=== PATIENT | male | born 1940 | race Two or more races ===

== ENCOUNTER 2017-01-29 11:51 | Inpatient (IN) | payer MEDICARE, MEDICAID ==
[~2017-01-29] VITALS: Ht 165.1 cm; Wt 77.6 kg
--- NOTE | 2017-01-29 11:55 | NUR ---
Pt from dr green:preop clearance, L knee Sx on sunday. VSS. awaiting md order.
[2017-01-29 12:15] LABS: BASOPHILS # (AUTO) 0.1 /CMM (0.0-0.2); BASOPHILS % (AUTO) 1.2 % (0.0-2.0); EOSINOPHILS # (AUTO) 0.2 /CMM (0.0-0.7); HEMATOCRIT 39 % (39-51); HEMOGLOBIN 12.6 g/dL (13.5-17.5); LYMPHOCYTES # (AUTO) 1.7 /CMM (0.8-4.8); LYMPHOCYTES % (AUTO) 20.8 % (20.0-44.0); MEAN CORPUSCULAR HEMOGLOBIN 31 PG (26.0-33.0); MEAN CORPUSCULAR HGB CONC 33 g/dl (31.0-36.0); MEAN CORPUSCULAR VOLUME 96 fL (80-96); MONOCYTES # (AUTO) 0.6 /CMM (0.1-1.30); MONOCYTES % (AUTO) 7.6 % (2.0-12.0); NEUTROPHILS # (AUTO) 5.6 /CMM (1.8-8.9); NEUTROPHILS % (AUTO) 67.4 % (43.0-81.0); PLATELET COUNT (AUTO) 279 /CMM (150-450); RDW COEFFICIENT OF VARIATION 13.3 (11.5-15.0); RED BLOOD CELL COUNT(AUTO) 4.04 MIL/uL (4.5-6.0); WHITE BLOOD COUNT (AUTO) 8.2 K/uL (4.3-11.0)
[2017-01-29] MEDS ORDERED: IV SET PRIMARY PUMP SET 1 EA INFUS.SET MC ONE (12:20)
[2017-01-29 12:26] LABS: CALCIUM, SERUM 8.9 mg/dL (8.5-10.1); CREATININE 1.3 mg/dL (0.6-1.3); POTASSIUM 4.5 mmol/L (3.5-5.1)
[2017-01-29 12:30] LABS: INR 1.02 (0.87-1.13); PROTHROMBIN TIME 10.6 SECS (9.5-12.7)
[2017-01-29] MEDS ORDERED: VANCOMYCIN 1 GM in IV D5W 250 ML IV ONE (12:30)
[2017-01-29 12:31] LABS: ALBUMIN 3.6 g/dL (3.4-5.0); BILIRUBIN,DIRECT 0.1 mg/dL (0.0-0.2); BILIRUBIN,TOTAL 0.3 mg/dL (0.2-1.0); TOTAL PROTEIN, SERUM 7.6 g/dL (6.4-8.2)
--- NOTE | 2017-01-29 12:40 | NUR ---
BLUNGER LOADER AT BEDSIDE
[2017-01-29] MEDS ORDERED: DIPH1TAB PO (12:49)
[2017-01-29] MEDS ORDERED: LORA10TA68 PO (12:49)
[2017-01-29] MEDS ORDERED: GABA-534 PO (12:49)
[2017-01-29] MEDS ORDERED: INDO50CA PO (12:49)
[2017-01-29] MEDS ORDERED: AMIT25TA52 PO (12:49)
[2017-01-29] MEDS ORDERED: ACET1TAB14 PO (12:49)
[2017-01-29] MEDS ORDERED: NIFE90TA37 PO (12:49)
[2017-01-29] MEDS ORDERED: ALLO300T2 PO (12:49)
[2017-01-29] MEDS ORDERED: ASPI81TA2 PO (12:49)
[2017-01-29] MEDS ORDERED: GLIP5TAB13 PO (12:49)
--- NOTE | 2017-01-29 13:06 | NUR ---
GAVE REPORT TO LEO NELSON MEDSUR 201-1 DR SINGH ADMITTING. DX INFECTION KNEE
[2017-01-29 13:30] VITALS: BP 151/79
[2017-01-29] MEDS ORDERED: MAGNESIUM HYDROXIDE 30 ML UDC PO PRN (13:30)
[2017-01-29] MEDS ORDERED: Z GUARD REMEDY 2 OZ OINT TP PRN (13:30)
[2017-01-29] MEDS ORDERED: HYDROCODONE/APAP 5/325MG 1 EACH TABLET PO PRN (13:30)
[2017-01-29] MEDS ORDERED: ONDANSETRON HCL/PF 4 MG/2 ML VIAL IVP PRN (13:30)
[2017-01-29] MEDS ORDERED: MAG HYDROX/AL HYDROX/SIMETH 30 ML UDC PO PRN (13:30)
[2017-01-29] MEDS ORDERED: ACETAMINOPHEN 325 MG TABLET PO PRN (13:30)
[2017-01-29] MEDS ORDERED: ZOLPIDEM TARTRATE 5 MG TABLET PO PRN (13:30)
--- NOTE | 2017-01-29 13:30 | NUR ---
MS NELSON OPENING RECEIVED PATIENT FROM ER FOR LEFT INFECTED KNEE SCHEDULED FOR SURGERY TOMORROW Sunday. PATIENT DENIES SOB, DIFFICULTY BREATHING OR PAIN AT THIS TIME. VS BEING TAKEN BY IZABELLA NELSON. PATIENT NOTIFIED EXECUTIVE DIRECTOR OF NURSING WILL SEE HIM FOR CLEARANCE OF SURGERY. NO ORDER FOR SURGERY AT THIS TIME SO UNABLE TO GET CONSENT AT THIS TIME. PATIENT WITH FAMILY AT BEDSIDE AND STATES NO NEEDS. CALL LIGHT IN REACH, BED LOWERED AND LOCKED, RAILS UPX3 FOR SAFETY AND WILL ROUND Q2H OR LESS PER NEEDS. VANCO BEING COMPLETED ORDERED. IV INTACT AND PATENT
[2017-01-29] MEDS ORDERED: FEE PK DOSING 1 MIN EA MC ONE (13:57)
[2017-01-29] MEDS ORDERED: DEXTROSE 50%-WATER 50 ML DISP.SYRIN IV PRN (14:00)
--- NOTE | 2017-01-29 14:00 | NUR ---
MS RN NOTES PATIENT DOES NOT WANT ME TO VISUALIZE HIS SACRUM/BACK. EDUCATED TO WHY WE DO AND PATIENT REFUSING.
[2017-01-29] MEDS ORDERED: ASPIRIN 325 MG TABLET PO ONE (14:30)
[2017-01-29 16:00] VITALS: BP 132/78
[2017-01-29] MEDS: BLOOD SUGAR DIAGNOSTIC 1 EACH STRIP VI SCH ×2 (16:59→21:21)
[2017-01-29] MEDS ORDERED: CEFTRIAXONE 1 G VIAL IM SCH (18:00)
--- NOTE | 2017-01-29 18:43 | NUR ---
MS RN CLOSING PATIENT STABLE NO COMPLICATIONS NO CHANGES. PATIENT AWARE NPO STATUS MIDNIGHT AND SIGNED ALL CONSENT FORMS EXCEPT THE BLOOD TRANSFUSION; WOULD LIKE TO SPEAK WITH MD BEFORE SIGNING. PATIENT STATES NO NEEDS AT THIS TIME AND APPEARS STABLE. CALL LIGHT IN REACH, BED LOWERED AND LOCKED, RAILS UPX3 FOR SAFETY AND WILL ENDORSE CARE TO RN FOR SINAN
--- NOTE | 2017-01-29 19:30 | NUR ---
MS RN INITIAL NOTE RECEIVED PT STABLE AND COMFORTABLE, AMIN OF SURGICAL PROCEDURE TOMORROW AM, PT REFUSES TO SIGN BLOOD CONSENT, HE IS REQUESTING TO SPEAK TO SURGEON BEFORE HE SIGNS CONSENT, WILL CONTINUE TO MONITOR CLOSELY.
[2017-01-29 20:10] VITALS: BP 130/70
[2017-01-29] MEDS: *INSULIN REGULAR(HUMULIN R)HUM 100 UNIT/ML VIAL SQ PRN (20:48)
--- NOTE | 2017-01-29 20:49 | NUR ---
PT'S BS IS 131, PT NOT CONSUMING ANY FOOD OR SNACKS AT THIS TIME AND IS SCHEDULE TO BE NPO AFTER MIDNIGHT DUE TO SURGICAL PROCEDURE SCHEDULE FOR 6:30 AM TOMORROW, WILL CONTINUE TO MONITOR CLOSELY.
[2017-01-29] MEDS ORDERED: IV NS 0.9% 250 ML IV ONE (21:19)
[2017-01-29] MEDS ORDERED: SECONDARY IV SET 1 EA INFUS.SET MC ONE (21:20)
[2017-01-29] MEDS: CEFTRIAXONE 1 G in IV D5W 50 ML IV SCH (21:21)
[2017-01-29] MEDS: AMITRIPTYLINE HCL 25 MG TABLET PO SCH (22:00)
--- NOTE | 2017-01-29 22:00 | NUR ---
ELAVIL 25MG DUE AT 2200 NOT GIVEN DUE TO MEDICATION NOT BEING AVAILABLE.
[2017-01-30] VITALS (49 sets, daily range): BP systolic 75–149; BP diastolic 55–102
[2017-01-30] MEDS: VANCOMYCIN 1 GM in IV D5W 250 ML IV SCH ×3 (01:55→23:53)
[2017-01-30] MEDS ORDERED: SECONDARY IV SET 1 EA INFUS.SET MC ONE ×3 (01:56→11:05)
[2017-01-30] MEDS ORDERED: IV NS 0.9% 250 ML IV ONE ×2 (05:39→10:43)
[2017-01-30] MEDS ORDERED: BACITRACIN 50000 UNITS/VIAL ONE (05:50)
[2017-01-30] MEDS ORDERED: KETOROLAC TROMETHAMINE INJ 30 MG/ML VIAL ONE (05:50)
[2017-01-30] MEDS ORDERED: BUPIVACAINE 0.5 % PF 150 MG/30 ML VIAL ONE (05:50)
[2017-01-30] MEDS ORDERED: MIDAZOLAM HCL 2 MG/2ML VIAL ONE (06:22)
[2017-01-30] MEDS ORDERED: ROCURONIUM BROMIDE 50 MG/5 ML ONE (06:22)
[2017-01-30] MEDS ORDERED: FENTANYL PF 100MCG/2ML AMPUL ONE ×3 (06:22→08:04)
--- NOTE | 2017-01-30 06:41 | NUR ---
MS RN CLOSING NOTE PT REMAINED STABLE DURING BATCH PLANT OPERATOR, PICKED UP BY SURGERY AT 0600, ENDORSED TO OR NURSE FOR SINAN
[2017-01-30 06:57] LABS: BASOPHILS % (AUTO) 0.8 % (0.0-2.0); EOSINOPHILS # (AUTO) 0.2 /CMM (0.0-0.7); HEMATOCRIT 38 % (39-51); HEMOGLOBIN 12.5 g/dL (13.5-17.5); LYMPHOCYTES # (AUTO) 1.1 /CMM (0.8-4.8); LYMPHOCYTES % (AUTO) 19.5 % (20.0-44.0); MEAN CORPUSCULAR HEMOGLOBIN 31 PG (26.0-33.0); MEAN CORPUSCULAR HGB CONC 33 g/dl (31.0-36.0); MEAN CORPUSCULAR VOLUME 96 fL (80-96); MONOCYTES # (AUTO) 0.5 /CMM (0.1-1.30); MONOCYTES % (AUTO) 8.8 % (2.0-12.0); NEUTROPHILS # (AUTO) 3.9 /CMM (1.8-8.9); NEUTROPHILS % (AUTO) 67.9 % (43.0-81.0); PLATELET COUNT (AUTO) 249 /CMM (150-450); RED BLOOD CELL COUNT(AUTO) 3.99 MIL/uL (4.5-6.0); WHITE BLOOD COUNT (AUTO) 5.8 K/uL (4.3-11.0)
--- NOTE | 2017-01-30 07:15 | NUR ---
received report from [facility] nurse minept. left for or at 6am this morning.
[2017-01-30 07:22] LABS: ALBUMIN 3.2 g/dL (3.4-5.0); BILIRUBIN,TOTAL 0.3 mg/dL (0.2-1.0); CALCIUM, SERUM 8.6 mg/dL (8.5-10.1); CREATININE 1.2 mg/dL (0.6-1.3); MAGNESIUM 1.6 mg/dL (1.8-2.4); PHOSPHORUS 2.9 mg/dL (2.5-4.9); POTASSIUM 4.5 mmol/L (3.5-5.1); TOTAL PROTEIN, SERUM 7.2 g/dL (6.4-8.2)
[2017-01-30] MEDS ORDERED: PANTOPRAZOLE 40 MG TABLET.DR PO SCH (07:30)
[2017-01-30] MEDS ORDERED: HYDROMORPHONE 1 MG/1 ML DISP.SYRIN ONE ×2 (08:18→09:18)
[2017-01-30] MEDS ORDERED: LABETALOL HCL IV 100MG VIAL ONE (08:34)
[2017-01-30] MEDS ORDERED: FUROSEMIDE 20 MG/2 ML VIAL ONE ×2 (08:50→08:56)
[2017-01-30] MEDS ORDERED: ALBUTEROL FS 2.5 MG/3 ML VIAL.NEB ONE (08:51)
[2017-01-30] MEDS ORDERED: ASPIRIN 81 MG TAB.CHEW PO SCH (09:00)
[2017-01-30] MEDS ORDERED: NIFEdipine XL (30MG) 30 MG TAB PO SCH (09:00)
[2017-01-30] MEDS ORDERED: DIPHENOXYLATE HCL/ATROP SULF 1 UDTAB TABLET PO PRN (09:00)
[2017-01-30 09:19] LABS: ABG BASE EXCESS -7.1 mmol/L; ABG OXYGEN SATURATION 95.9 % (92.0-98.5); ABG PCO2 46.4 mmHg (35.0-45.0); ABG PH 7.253 (7.350-7.450); ABG PO2 106.1 mmHg (75.0-100.0); AaDO2 219.9 mmHg; COHb 0.6 % (0.5-1.5); MetHb 0.3 % (0.0-1.5); SITE, ABG Left Radial; VENT MODE, BG VIA HHN MASK
--- NOTE | 2017-01-30 09:20 | NUR ---
call form rec. rm. pt. to go to icu [phone].
--- NOTE | 2017-01-30 09:20 | NUR ---
PLACED ON BIPAP DUE TO INCREASED WOB. BIPAP SETTINGS BELLOW PER RT DRIVEN PROTOCOL: IPAP 15 EPAP 5 RATE 12 FIO2 35% BREATH SOUNDS DIMINISHED BILATERAL. Addendum: 01/30/17 at 0948 by MARIA HOGAN RT Amended: Links added.
[2017-01-30] MEDS ORDERED: HYDROCODONE/APAP 5/325MG 1 EACH TABLET PO PRN (09:30)
[2017-01-30] MEDS ORDERED: BISACODYL SUPP (10 MG) 10 MG/SUPP.RECT SUPP.RECT RC PRN (09:30)
[2017-01-30] MEDS ORDERED: IV D5/0.45 NACL 1,000 ML IV PRN (09:30)
[2017-01-30] MEDS ORDERED: ZOLPIDEM TARTRATE 5 MG TABLET PO PRN (09:30)
[2017-01-30] MEDS ORDERED: DOCUSATE SODIUM 250 MG CAPSULE PO PRN (09:30)
[2017-01-30] MEDS ORDERED: SENNOSIDES 8.6 MG TABLET PO PRN (09:30)
--- NOTE | 2017-01-30 09:35 | NUR ---
ICU/RN PT TRANSFER FROM OR.POST OP LEFT KNEE ARTHROTOMY WITH PATELLOPLASTY,WITH I AND D OF THE LEFT KNEE.POST SOC ANALYST.HR WETN TO 138-140 BPM.PT C/O OF PAIN AND SOB.CHEST X-RAY DONE,EKG,ABG,TROPONIN LEVEL ORDERED.40 MG OF LASIX GIVEN IN OR.NEW IV INSERTED ON THE RIGHT FA.PT PLACED ON BI-PAP.CHILD DEVELOPMENT CONSULTANT AT BED SIDE.NEW ORDERS RECEIVED.
--- NOTE | 2017-01-30 09:40 | NUR ---
report called to eliz in icu.on pt. additionally belongings sent to icu,including meds.
--- NOTE | 2017-01-30 09:49 | NUR ---
PT PLACED ON NASAL CANNULA @ 4 LPM O2 FLOW. BIPAP ON STD BY MODE @ BEDSIDE. Addendum: 01/30/17 at 0951 by MARIA HOGAN RT Amended: Links added.
--- NOTE | 2017-01-30 10:00 | NUR ---
ICU/RN 40 MG OF LASIX IV IN PACU WAS GIVEN .PT HAS NO URINE OUTPUT.PT REFUSED TO PLACE FOLLY CATHETER. NOTIFIED.
[2017-01-30] MEDS: ALLOPURINOL 100 MG TABLET PO SCH (10:23)
[2017-01-30] MEDS: glipiZIDE 5 MG TABLET PO SCH (10:24)
[2017-01-30] MEDS: LORATADINE 10 MG TABLET PO SCH (10:24)
[2017-01-30] MEDS: GABAPENTIN 300 MG CAPSULE PO SCH (10:24)
[2017-01-30] MEDS: BLOOD SUGAR DIAGNOSTIC 1 EACH STRIP VI SCH ×4 (10:25→21:31)
[2017-01-30] MEDS ORDERED: DILTIAZEM HCL 25 MG IV IV ONE (10:30)
[2017-01-30] MEDS ORDERED: IV SET PRIMARY PUMP SET 1 EA INFUS.SET MC ONE (10:43)
[2017-01-30] MEDS: Magnesium 1GM/D5W 100ML PREMIX 100 ML IV SCH ×4 (10:50→14:09)
--- NOTE | 2017-01-30 11:00 | NUR ---
ICU/RN DUE MEDS ARE GIVEN ORDERED.FAMILY AT BED SIDE.LABS REVIEW.NEW ORDERS RECEIVED.
[2017-01-30] MEDS: DILTIAZEM HCL 30 MG TABLET PO SCH ×2 (11:41→18:09)
[2017-01-30] MEDS: *INSULIN REGULAR(HUMULIN R)HUM 100 UNIT/ML VIAL SQ PRN ×2 (12:22→21:29)
[2017-01-30] MEDS ORDERED: oxyCODONE IR immediate release 5 MG CAPSULE PO PRN (13:30)
[2017-01-30] MEDS ORDERED: diphenhydrAMINE HCL 25 MG CAPSULE PO PRN (13:30)
[2017-01-30] MEDS: HYDROMORPHONE 1 MG/1 ML DISP.SYRIN SQ PRN ×2 (13:51→21:43)
[2017-01-30 14:13] LABS: ABG BASE EXCESS -2.7 mmol/L; ABG OXYGEN SATURATION 94.4 % (92.0-98.5); ABG PH 7.345 (7.350-7.450); ABG PO2 82.5 mmHg (75.0-100.0); AaDO2 59.2 mmHg; COHb 1.3 % (0.5-1.5); O2Hb 93.2 % (94.0-97.0); SITE, ABG Right Radial; VENT MODE, BG N/C
--- NOTE | 2017-01-30 15:00 | NUR ---
ICU/RN PT STILL HAS NO URINE OUTPUT. NOTIFIED.7 HRS POST OP.BLADDER SCANNER DONE 650 ML OF URINE NOTED .F/C INSERTED.BLOODY URINE NOTED.CONTINUE MONITORING.
[2017-01-30] MEDS: DOCUSATE SODIUM 100 MG CAPSULE PO SCH (16:33)
[2017-01-30] MEDS: IPRATROPIUM NEB FS 0.5 MG/2.5 ML AMPUL.NEB NEB SCH ×3 (16:43→23:06)
--- NOTE | 2017-01-30 18:00 | NUR ---
ICU/RN DUE MEDS ARE GIVEN ORDERED. BS-118.PT EATS 100% FROM HIS DINNER TRAY.PM CARE PROVIDED.PT HAS BLOODY DISCHARGE FROM HIS PENIS AND 650 ML BLOODY URINE FROM HIS F/C.LEFT LEG COVERED WITH SURGICAL DRESSING,LEFT FOOT PINK AND COOL.REDNESS ON HILARY AREA AND LOWER BACK NOTED.ON 2L N/S .SAT O2-96%-97%.ST ON MONITOR.103BPM.AFEBRILE.
[2017-01-30] MEDS: ALBUTEROL HALF STRENGTH 1.25 MG/3 ML VIAL.NEB NEB SCH ×2 (19:43→23:06)
[2017-01-30] MEDS: CEFTRIAXONE 1 G in IV D5W 50 ML IV SCH (20:27)
[2017-01-30] MEDS: ASPIRIN 325 MG TABLET PO SCH (20:27)
[2017-01-30] MEDS: AMITRIPTYLINE HCL 25 MG TABLET PO SCH (21:18)
[2017-01-30] MEDS: PANTOPRAZOLE 40 MG TABLET.DR PO SCH (21:18)
[2017-01-30] MEDS: oxyCODONE IR immediate release 5 MG CAPSULE PO PRN (21:20)
[2017-01-31] VITALS (37 sets, daily range): BP systolic 92–169; BP diastolic 44–107
[2017-01-31] MEDS: HYDROMORPHONE 1 MG/1 ML DISP.SYRIN SQ PRN ×4 (00:52→20:58)
[2017-01-31] MEDS: ALBUTEROL HALF STRENGTH 1.25 MG/3 ML VIAL.NEB NEB SCH ×6 (02:51→23:41)
[2017-01-31] MEDS: IPRATROPIUM NEB FS 0.5 MG/2.5 ML AMPUL.NEB NEB SCH ×6 (02:51→23:41)
[2017-01-31 04:42] LABS: BASOPHILS % (AUTO) 0.4 % (0.0-2.0); CALCIUM, SERUM 8.1 mg/dL (8.5-10.1); CREATININE 2.1 mg/dL (0.6-1.3); EOSINOPHILS # (AUTO) 0.1 /CMM (0.0-0.7); EOSINOPHILS % (AUTO) 0.9 % (0.0-6.0); HEMATOCRIT 33 % (39-51); HEMOGLOBIN 10.7 g/dL (13.5-17.5); LYMPHOCYTES # (AUTO) 1.2 /CMM (0.8-4.8); LYMPHOCYTES % (AUTO) 13.4 % (20.0-44.0); MEAN CORPUSCULAR HEMOGLOBIN 32 PG (26.0-33.0); MEAN CORPUSCULAR HGB CONC 33 g/dl (31.0-36.0); MEAN CORPUSCULAR VOLUME 97 fL (80-96); NEUTROPHILS # (AUTO) 6.8 /CMM (1.8-8.9); NEUTROPHILS % (AUTO) 74.3 % (43.0-81.0); PLATELET COUNT (AUTO) 235 /CMM (150-450); POTASSIUM 4.8 mmol/L (3.5-5.1); RDW COEFFICIENT OF VARIATION 14.1 (11.5-15.0); RED BLOOD CELL COUNT(AUTO) 3.39 MIL/uL (4.5-6.0); WHITE BLOOD COUNT (AUTO) 9.1 K/uL (4.3-11.0)
[2017-01-31] MEDS: DILTIAZEM HCL 30 MG TABLET PO SCH ×4 (05:35→17:20)
--- NOTE | 2017-01-31 06:30 | NUR ---
PEANUT CLEANER - REC'D PT. SLEEPING INTERMITTENTLY, EASILY AROUSABLE. PT.IS UTE BUT DOES NOT OWN HEARING AIDS.PT. ALWAYS TALKS LOUDLY. S/P SURGERY OF LLE/LEFT KNEE ARTHROSCOPY/PATELLAPLASTY W/REVISION-I&D. LLE IS WRAPPED IN CARLOS BANDABE & IS CDI. PT'S O2 SATS HAVE BEEN IN THE LOW 90'S ON O2/2L/NC. PT. ADMITS TO SMOKING ONE PACK/QD. PT. IS WHEEZING THRUOUT ALL LOBES. 1899 TROPONIN WAS #0.103. RN FOUND INHALER ON PT. PT. HAS BEEN USING THIS W/O RN KNOWLEDGE. I EXPLAINED TO PT. HE CANNOT USE HIS INHALER BECAUSE HOSPITAL IS GIVING HIM NEBULIZER TXS. PT.HAS ARTIFICIAL URINARY PUMP. CONNIE GREEN DNP PLACED MARTINEZ IN PT. & PT.HAS HAD BLOODY/HEMATURIA DAYSHIFT & NIGHTSHIFT. MARTINEZ ONLY PUT OUT 200CC FOR ME. PEDAL PULSES PALPABLE/STRONG. PT.REFUSED BEDBATH LAST NIGHT. REPORT ENDORSED TO ENEDINA NELSON. CONT. POC
--- NOTE | 2017-01-31 08:00 | NUR ---
ICU/RN INITIAL NOTES, AM RECEIVED REPORT FROM NIGHT NURSE. PT ALERT, AWAKE FOLLOWS COMMANDS. ON NASAL CANULA, NO ACUTE DISTRESS NOTED AT THIS TIME. MAINTAINING 02 SAT BETWEEN 89-95%, MD'S AWARE. PT ON TELE, SINUS, WITH BUNDLE BRANCH. PT IS POST OP LEFT KNEE SURGERY, SURGICAL DRESSING ON, NO S/S OF BLEEDING NOTED. MARTINEZ CATH IN PLACE, MINIMAL URINE OUTPUT NOTED, MD NOTIFIED. AWAITING FOR RENAL CONSULT. RIGHT UPPER ARM PICC LINE IN PLACE. NO S/S OF INFECTION NOTED. ALL NEEDS WILL BE MET, SAFETY MEASURES TAKEN,BED IN LOW POSITION, SIDE RAILS UP, CALL LIGHT WITHIN REACH. WILL CONTINUE TO CARE.
[2017-01-31] MEDS: BLOOD SUGAR DIAGNOSTIC 1 EACH STRIP VI SCH ×4 (08:10→21:23)
[2017-01-31] MEDS: ASPIRIN 325 MG TABLET PO SCH (08:11)
[2017-01-31] MEDS: GABAPENTIN 300 MG CAPSULE PO SCH (08:11)
[2017-01-31] MEDS: NICOTINE PATCH (21MG) 21 MG PATCH.TD24 TD SCH (08:11)
[2017-01-31] MEDS: INSULIN REGULAR, HUMAN 100 UNIT/ML 3 ML VIAL SQ PRN ×2 (08:11→17:23)
[2017-01-31] MEDS: ALLOPURINOL 100 MG TABLET PO SCH (08:11)
[2017-01-31] MEDS: glipiZIDE 5 MG TABLET PO SCH (08:12)
[2017-01-31] MEDS: LORATADINE 10 MG TABLET PO SCH (08:12)
[2017-01-31] MEDS: DOCUSATE SODIUM 100 MG CAPSULE PO SCH ×2 (08:12→17:20)
--- NOTE | 2017-01-31 12:00 | NUR ---
ICU/RN: AT BEDSIDE FOR CONSULT. MD NOTIFIED OF LOW TO NO URINE OUTPUT. URINE DARK RED/BROWN. ORDERS RECEIVED FOR RENAL US AND OTHER LABS. WILL FOLLOW UP AND FOLLOW THROUGH
[2017-01-31] MEDS: oxyCODONE IR immediate release 5 MG CAPSULE PO PRN (12:18)
--- NOTE | 2017-01-31 14:06 | NUR ---
WOUND CARE CONSULT PATIENT SEEN AND SKIN INTEGRITY ASSESSMENT DONE. PATIENT PRESENTS WITH CARLOS WRAP OVER THE FOOT/ANKLE AND THIGH POST OP. WOUND CARE WILL DEFER POST OP SITE TO ORTHO AT THIS TIME. PATIENT IS CURRENTLY INDEPENDENT WITH BED MOBILITY AND ABLE TO MOVE ALL EXTREMITIES. PATIENT STATES HE KNOWS WHEN HE HAS TO GO TO THE BATHROOM. WOUND CARE WILL SEE PRN. CURRENT LOY AT 19.
[2017-01-31] MEDS: VANCOMYCIN 1 GM in IV D5W 250 ML IV SCH (14:17)
[2017-01-31 16:34] LABS: APPEARANCE,URINE TURBID (CLEAR); BILIRUBIN,URINE 1+ (NEGATIVE); BLOOD, URINE 3+ Ery/uL (NEGATIVE); KETONES,URINE TRACE (NEGATIVE); LEUKOCYTE ESTERASE ,URINE 1+ (NEGATIVE); NITRITE, URINE POSITIVE (NEGATIVE); PH,URINE 6.5 (5.0-8.0); PROTEIN,URINE 3+ mg/dl (NEGATIVE); UGLUCOSE TRACE mg/dL (NEGATIVE)
[2017-01-31 16:42] LABS: COLOR,URINE BROWN (YELLOW)
[2017-01-31 17:02] LABS: RBC,URINE TOO NUMEROUS TO COUN /HPF (0-2)
[2017-01-31 17:03] LABS: BACTERIA,URINE Moderate /HPF (None Seen); SQUAMOUS EPITHELIAL CELL,UR Rare /HPF (None Seen)
[2017-01-31 17:10] LABS: EOSINOPHIL,URINE None Seen
[2017-01-31 17:18] LABS: CREATININE, URINE 152.6 MG/DL (30.0-125.0)
--- NOTE | 2017-01-31 18:00 | NUR ---
ICU/RN: REPORT ENDORSED TO GEORGI. PT TRANSFERRED TO ROOM 310-1 VIA BED AND ACLS GUIDELINES. ALL BELONGINGS SENT WITH PT ALONG WITH MEDICATIONS AND CHART. PT ON 2LITERS NASAL CANULA, NO DISTRESS NOTED. PT ON TELE, SINUS WITH BUNDLE BRANCH. PT BATHED, TURNED AND REPOSITIONED. ALL NEEDS MET, SAFETY MEASURES TAKEN, BED IN LOW POSITION, SIDE RAILS UP, CALL LIGHT WITHIN REACH.
--- NOTE | 2017-01-31 18:25 | NUR ---
MS RN RECEIVED ON FROM ICU, PATIENT IS AWAKE,ALERT,ORIENTED X4,NOT IN ANY FORM OF DISTRESS, RESPIRATIONS EVEN AND UNLABORED,NO SOB NOTED, S/P LEFT KNEE SX, W/ CARLOS WRAPPED,NO BLEEDING NOTED, DENIES PAIN, WILL MONITOR PATIENT'S CONDITION.
--- NOTE | 2017-01-31 19:00 | NUR ---
MS RN ON BED, NO DISTRESS NOTED, WILL ENDORSED TO PRINTING PRESS MACHINIST FOR CONTINUITY OF CARE.
[2017-01-31] MEDS: CEFTRIAXONE 1 G in IV D5W 50 ML IV SCH (20:30)
[2017-01-31] MEDS ORDERED: IV NS 0.9% 250 ML IV ONE (20:36)
[2017-01-31] MEDS ORDERED: SECONDARY IV SET 1 EA INFUS.SET MC ONE (20:36)
[2017-01-31] MEDS ORDERED: IV SET PRIMARY PUMP SET 1 EA INFUS.SET MC ONE (20:36)
[2017-01-31] MEDS: AMITRIPTYLINE HCL 25 MG TABLET PO SCH (21:22)
[2017-01-31] MEDS: PANTOPRAZOLE 40 MG TABLET.DR PO SCH (21:22)
[2017-01-31] MEDS: *INSULIN REGULAR(HUMULIN R)HUM 100 UNIT/ML VIAL SQ PRN (22:36)
[2017-02-01] VITALS (7 sets, daily range): BP systolic 126–152; BP diastolic 69–78
[2017-02-01] MEDS: DILTIAZEM HCL 30 MG TABLET PO SCH ×2 (00:53→05:53)
[2017-02-01] MEDS: HYDROMORPHONE 1 MG/1 ML DISP.SYRIN SQ PRN ×2 (03:13→23:04)
[2017-02-01] MEDS: ALBUTEROL HALF STRENGTH 1.25 MG/3 ML VIAL.NEB NEB SCH ×5 (03:36→19:44)
[2017-02-01] MEDS: IPRATROPIUM NEB FS 0.5 MG/2.5 ML AMPUL.NEB NEB SCH ×5 (03:36→19:44)
[2017-02-01] MEDS: BLOOD SUGAR DIAGNOSTIC 1 EACH STRIP VI SCH ×4 (05:53→21:42)
[2017-02-01] MEDS: INSULIN REGULAR, HUMAN 100 UNIT/ML 3 ML VIAL SQ PRN (06:29)
[2017-02-01 06:38] LABS: BASOPHILS % (AUTO) 0.6 % (0.0-2.0); EOSINOPHILS # (AUTO) 0.1 /CMM (0.0-0.7); HEMATOCRIT 31 % (39-51); HEMOGLOBIN 10.2 g/dL (13.5-17.5); LYMPHOCYTES # (AUTO) 1.1 /CMM (0.8-4.8); LYMPHOCYTES % (AUTO) 15.9 % (20.0-44.0); MEAN CORPUSCULAR HEMOGLOBIN 32 PG (26.0-33.0); MEAN CORPUSCULAR HGB CONC 33 g/dl (31.0-36.0); MEAN CORPUSCULAR VOLUME 96 fL (80-96); MONOCYTES # (AUTO) 0.8 /CMM (0.1-1.30); MONOCYTES % (AUTO) 11.3 % (2.0-12.0); NEUTROPHILS # (AUTO) 4.9 /CMM (1.8-8.9); NEUTROPHILS % (AUTO) 70.2 % (43.0-81.0); PLATELET COUNT (AUTO) 191 /CMM (150-450); RDW COEFFICIENT OF VARIATION 13.9 (11.5-15.0); RED BLOOD CELL COUNT(AUTO) 3.21 MIL/uL (4.5-6.0)
--- NOTE | 2017-02-01 06:48 | NUR ---
LIQUEFIED NATURAL GAS PLANT OPERATOR NOTES AWAKE & RESPONSIVE. NOT IN ANY DISTRESS. NO SOB NOTED. DENIES ANY PAIN OR DISCOMFORT AT THIS TIME. ON TELE SR @ 93 WITH BBB WITH PICC LINE PATENT & INTACT. CALL LIGHT WITHIN REACH. BED IN LOWEST POSITION. SR UP X 2 FOR SAFETY. WILL ENDORSE TO NEXT SHIFT.
[2017-02-01 07:10] LABS: CALCIUM, SERUM 8.4 mg/dL (8.5-10.1); CREATININE 1.6 mg/dL (0.6-1.3); MAGNESIUM 2.2 mg/dL (1.8-2.4); PHOSPHORUS 4.3 mg/dL (2.5-4.9); POTASSIUM 4.7 mmol/L (3.5-5.1)
--- NOTE | 2017-02-01 07:30 | NUR ---
BEAUTY SCHOOL INSTRUCTOR AM NOTES PT IN BED, AAO X4, ON 2L O2 NASAL CANULA, NAD, NO SOB, RESPIRATION UNLABORED, TELEMETRY READS SR WITH BBB HR 93, DENIES ANY DISCOMFORT AT THIS TIME. PT IS POST OP LEFT KNEE SURGERY [ARTHROTOMY] BY DR LIU ON 01/30/17, SURGICAL DRESSING ON, NO S/S OF BLEEDING NOTED. MARTINEZ CATH IN PLACE, MINIMAL URINE OUTPUT NOTED, LISA RUBY MD AWARE. RIGHT UPPER ARM PICC LINE IN PLACE. CDI DRESSING. RFA 20 G IV ACCESS IN PLACE, FLUSHES WELL SITE CLEAR. SAFETY MEASURES IN PLACE. BED IN LOW POSITION, SIDE RAILS UP, CALL LIGHT WITHIN REACH. WILL CONTINUE TO MONITOR.
[2017-02-01 08:53] LABS: ABG BASE EXCESS -3.7 mmol/L; ABG OXYGEN SATURATION 88.1 % (92.0-98.5); ABG PCO2 38.2 mmHg (35.0-45.0); ABG PH 7.364 (7.350-7.450); ABG PO2 57.6 mmHg (75.0-100.0); AaDO2 46.4 mmHg; COHb 0.5 % (0.5-1.5); MetHb 0.1 % (0.0-1.5); O2Hb 87.6 % (94.0-97.0); SITE, ABG Left Radial; VENT MODE, BG ROOM AIR
--- NOTE | 2017-02-01 09:00 | NUR ---
DIRECTOR COMMUNITY ORGANIZATION NOTES PER DR. PAULSON TO PUT PT AT 1/2 LITER O2.
--- NOTE | 2017-02-01 09:30 | NUR ---
BREAKFAST MANAGER NOTES ADMINISTERED DUE MEDS.
[2017-02-01] MEDS: glipiZIDE 5 MG TABLET PO SCH (09:47)
[2017-02-01] MEDS: DOCUSATE SODIUM 100 MG CAPSULE PO SCH ×2 (09:47→16:57)
[2017-02-01] MEDS: GABAPENTIN 300 MG CAPSULE PO SCH (09:47)
[2017-02-01] MEDS: ASPIRIN 325 MG TABLET PO SCH (09:47)
[2017-02-01] MEDS: NICOTINE PATCH (21MG) 21 MG PATCH.TD24 TD SCH (09:48)
[2017-02-01] MEDS: LORATADINE 10 MG TABLET PO SCH (09:48)
[2017-02-01] MEDS: ALLOPURINOL 100 MG TABLET PO SCH (09:49)
--- NOTE | 2017-02-01 11:17 | NUR ---
MS RN NOTES MARTINEZ CATHETER IRRIGATED PER MARCO A [employer] SALES CONSULTANT - 300 ML OUTPUT WITH SLIGHT BROWN PRECIPITATE.
--- NOTE | 2017-02-01 12:05 | NUR ---
HARDWARE PRESS OPERATOR NOTES ACCUCHECK DONE. BS 117 MG/DL. NO INSULIN COVERAGE AT THIS TIME.
[2017-02-01] MEDS ORDERED: DILTIAZEM HCL CD 240 MG PO SCH (12:30)
[2017-02-01] MEDS: VANCOMYCIN 1 GM in IV D5W 250 ML IV SCH (12:47)
[2017-02-01] MEDS ORDERED: SECONDARY IV SET 1 EA INFUS.SET MC ONE (12:49)
[2017-02-01] MEDS ORDERED: DILTIAZEM HCL CD 120 MG PO SCH ×2 (12:58→13:00)
--- NOTE | 2017-02-01 12:59 | NUR ---
MANAGER CREDIT NOTES CARDIZEM 120MG NOT GIVEN. ANY HOWARD AWARE. NEEDS 120 MG ONLY, DISPENSED WAS 240MG CAPSULE. STARTED VANCO IV. INFUSING WELL.
--- NOTE | 2017-02-01 17:47 | NUR ---
PROOF TECHNICIAN HELPER NOTES ACCUCHECK DONE. BS 110 MG/DL. NO INSULIN COVERAGE AT THIS TIME.
--- NOTE | 2017-02-01 18:33 | NUR ---
GENERAL CLERK CLOSING NOTES PT RESTING IN BED, AAO X4, ON 1/2L O2 NASAL CANULA, NAD, NO SOB, RESPIRATION UNLABORED, TELEMETRY READS SR WITH BBB HR 90s, DENIES ANY DISCOMFORT AT THIS TIME. PT IS POST OP LEFT KNEE SURGERY [ARTHROTOMY] BY DR LIU ON 01/30/17, SURGICAL DRESSING ON, NO S/S OF BLEEDING NOTED. MARTINEZ CATH IN PLACE, 1500 ML OUTPUT WITH LISA RUBY MD AWARE. RIGHT UPPER ARM PICC LINE IN PLACE. CDI DRESSING. RFA 20 G IV ACCESS IN PLACE, FLUSHES WELL SITE CLEAR. SAFETY MEASURES IN PLACE. BED IN LOW POSITION, SIDE RAILS UP, CALL LIGHT WITHIN REACH. ALL NEEDS MET. WILL ENDORSE TO NEXT SHIFT FOR SINAN.
--- NOTE | 2017-02-01 19:00 | NUR ---
RN NOTE RECEIVED REPORT. PT RESTING IN BED WITH EYES CLOSED, NO S/S OF ANY DISTRESS AT THIS TIME. BREATHING NON-LABORED AND EVEN, ON NC 0.5L. F/C DRAINING YELLOWISH FLUID, BROWN SEDIMENT NOTED IN COLLECTION BAG. IV INTACT AND PATENT, NO FLUIDS. DRESSING I/C/D/ NO BLEEDING NOTED. WILL CONT TO MONIT. CALL LIGHT IN REACH. Addendum: 02/01/17 at 6 by CAMI MILLIGAN RN TELE SHOWS SR WITH 1AVB AND BBB IN 90'S.
[2017-02-01] MEDS: CEFTRIAXONE 1 G in IV D5W 50 ML IV SCH (19:56)
[2017-02-01] MEDS: oxyCODONE IR immediate release 5 MG CAPSULE PO PRN (21:41)
[2017-02-01] MEDS: PANTOPRAZOLE 40 MG TABLET.DR PO SCH (21:42)
[2017-02-01] MEDS: AMITRIPTYLINE HCL 25 MG TABLET PO SCH (21:42)
[2017-02-02] MEDS: IPRATROPIUM NEB FS 0.5 MG/2.5 ML AMPUL.NEB NEB SCH ×7 (00:03→23:31)
[2017-02-02] MEDS: ALBUTEROL HALF STRENGTH 1.25 MG/3 ML VIAL.NEB NEB SCH ×7 (00:04→23:31)
[2017-02-02 00:32] VITALS: BP 169/91
--- NOTE | 2017-02-02 03:00 | NUR ---
RN NOTE PT TELE SHOWS 130 ST, HAS SOB, C/O DIZZINESS. CONFUSED AND AGITATED. MD MADE AWARE, ORDERED STAT ABG, CXR, VENOUS DUPLEX LOWER EXTREMITIES. WILL MONITOR.
[2017-02-02] MEDS ORDERED: ENOXAPARIN SODIUM 80 MG/0.8 ML DISP.SYRIN SQ ONE ×2 (03:43→04:00)
[2017-02-02 04:16] LABS: ABG BASE EXCESS -4.4 mmol/L; ABG OXYGEN SATURATION 91.4 % (92.0-98.5); ABG PCO2 33.6 mmHg (35.0-45.0); ABG PH 7.389 (7.350-7.450); ABG PO2 65.9 mmHg (75.0-100.0); AaDO2 94.1 mmHg; COHb 1.5 % (0.5-1.5); MetHb 0.1 % (0.0-1.5); O2Hb 89.9 % (94.0-97.0); SITE, ABG Left Radial; VENT MODE, BG 2LNC
--- NOTE | 2017-02-02 04:30 | NUR ---
RN NOTE MD MADE AWARE OF ABG AND CXR RESULTS. NC INCREASED TO 4L, SATTING 92%. STILL CONFUSED. PER MD, TRANSFER PT TO [facility] FOR SUSPICION OF P.E.
[2017-02-02 04:33] VITALS: BP_SYST 115; BP_SYST 149; BP_DIAS 63; BP_DIAS 84
--- NOTE | 2017-02-02 05:30 | NUR ---
RN NOTE PT TRANSFERRED TO [facility] ROOM 115 WE ALL BELONGINGS.
--- NOTE | 2017-02-02 05:35 | NUR ---
nancy rn notes received pts from rn tabitha pts transfer to nancy STATUS d/t suspicion of PE, PTS ON VIA NC , AWAKE WITH CONFUSION , BLE US DOPPLER DONE , NO DVT NOTED . PT S/P L KNEE ARTHROTOMY WITH PATELOPLASTY ON 01/30 17 , DRESSING INTACT AND DRY , V/S STABLE AFEBRILE .NO SOB NO DISTRESS NOTED . WITH F/C INTACT AND PATENT DRAINING WITH YELLOWISH URINE OUTPUT , WILL ENDORSE TO RN DAY SHIFT FOR CONTINUITY OF CARE.
[2017-02-02 07:48] LABS: BASOPHILS % (AUTO) 0.3 % (0.0-2.0); EOSINOPHILS # (AUTO) 0.1 /CMM (0.0-0.7); EOSINOPHILS % (AUTO) 0.9 % (0.0-6.0); HEMATOCRIT 30 % (39-51); HEMOGLOBIN 9.8 g/dL (13.5-17.5); LYMPHOCYTES # (AUTO) 0.8 /CMM (0.8-4.8); LYMPHOCYTES % (AUTO) 8.5 % (20.0-44.0); MEAN CORPUSCULAR HEMOGLOBIN 32 PG (26.0-33.0); MEAN CORPUSCULAR HGB CONC 33 g/dl (31.0-36.0); MEAN CORPUSCULAR VOLUME 96 fL (80-96); MONOCYTES # (AUTO) 0.9 /CMM (0.1-1.30); MONOCYTES % (AUTO) 9.9 % (2.0-12.0); NEUTROPHILS # (AUTO) 7.1 /CMM (1.8-8.9); NEUTROPHILS % (AUTO) 80.4 % (43.0-81.0); PLATELET COUNT (AUTO) 192 /CMM (150-450); RDW COEFFICIENT OF VARIATION 14.1 (11.5-15.0); RED BLOOD CELL COUNT(AUTO) 3.12 MIL/uL (4.5-6.0); WHITE BLOOD COUNT (AUTO) 8.9 K/uL (4.3-11.0)
[2017-02-02 08:00] VITALS: BP 157/80
--- NOTE | 2017-02-02 08:00 | NUR ---
RN NOTES RECEIVED PT RESTING IN BED, AAO X3, CURRENTLY RECEIVING BREATHING TX. TELEMETRY READS SR WITH BBB, DENIES ANY DISCOMFORT AT THIS TIME. PT IS POST OP LEFT KNEE SURGERY [ARTHROTOMY] BY DR LIU ON 01/30/17, SURGICAL DRESSING ON. MARTINEZ CATH IN PLACE, MINIMAL URINE OUTPUT NOTED, RIGHT UPPER ARM PICC LINE IN PLACE. CDI DRESSING. SAFETY MEASURES IN PLACE. BED IN LOW POSITION, SIDE RAILS UP, CALL LIGHT WITHIN REACH. WILL CONTINUE TO MONITOR.
[2017-02-02] MEDS: DOCUSATE SODIUM 100 MG CAPSULE PO SCH ×2 (08:06→17:15)
[2017-02-02] MEDS: GABAPENTIN 300 MG CAPSULE PO SCH (08:06)
[2017-02-02] MEDS: BLOOD SUGAR DIAGNOSTIC 1 EACH STRIP VI SCH ×4 (08:06→21:27)
[2017-02-02] MEDS: NICOTINE PATCH (21MG) 21 MG PATCH.TD24 TD SCH (08:06)
[2017-02-02] MEDS: glipiZIDE 5 MG TABLET PO SCH (08:06)
[2017-02-02] MEDS: ASPIRIN 325 MG TABLET PO SCH (08:06)
[2017-02-02] MEDS: ALLOPURINOL 100 MG TABLET PO SCH (08:06)
[2017-02-02] MEDS: LORATADINE 10 MG TABLET PO SCH (08:07)
[2017-02-02] MEDS: DILTIAZEM HCL CD 120 MG PO SCH (08:07)
[2017-02-02 08:08] LABS: CALCIUM, SERUM 8.6 mg/dL (8.5-10.1); CREATININE 1.2 mg/dL (0.6-1.3); POTASSIUM 4.7 mmol/L (3.5-5.1)
[2017-02-02] MEDS: *INSULIN REGULAR(HUMULIN R)HUM 100 UNIT/ML VIAL SQ PRN ×2 (08:11→21:28)
[2017-02-02 12:00] VITALS: BP 149/77
[2017-02-02] MEDS: VANCOMYCIN 1 GM in IV D5W 250 ML IV SCH (12:24)
[2017-02-02] MEDS ORDERED: SECONDARY IV SET 1 EA INFUS.SET MC ONE ×2 (12:24→19:57)
[2017-02-02] MEDS ORDERED: IV SET PRIMARY PUMP SET 1 EA INFUS.SET MC ONE (12:24)
[2017-02-02] MEDS ORDERED: IV NS 0.9% 250 ML IV ONE (12:24)
[2017-02-02 16:00] VITALS: BP 154/72
[2017-02-02] MEDS: CEFTRIAXONE 1 G in IV D5W 50 ML IV SCH (19:54)
[2017-02-02 20:00] VITALS: BP 165/78
[2017-02-02] MEDS: PANTOPRAZOLE 40 MG TABLET.DR PO SCH (21:21)
[2017-02-02] MEDS: AMITRIPTYLINE HCL 25 MG TABLET PO SCH (21:21)
[2017-02-03] VITALS: BP 172/79
[2017-02-03] MEDS: ALBUTEROL HALF STRENGTH 1.25 MG/3 ML VIAL.NEB NEB SCH ×6 (03:26→23:30)
[2017-02-03] MEDS: IPRATROPIUM NEB FS 0.5 MG/2.5 ML AMPUL.NEB NEB SCH ×6 (03:26→23:30)
[2017-02-03 04:00] VITALS: BP 158/78
[2017-02-03] MEDS: INSULIN REGULAR, HUMAN 100 UNIT/ML 3 ML VIAL SQ PRN (06:41)
[2017-02-03] MEDS: BLOOD SUGAR DIAGNOSTIC 1 EACH STRIP VI SCH ×4 (06:42→22:09)
--- NOTE | 2017-02-03 06:51 | NUR ---
RN CLOSING NOTE PT REMAINS IN NO ACUTE DISTRESS IN BED. PT DID NOT HAVE ANY SIGNIFICANT CHANGE IN CONDITION. ALL NEEDS MET ALL ORDERS CARRIED OUT. ALL SAFETY MEASURES ENSURED AND CARRIED OUT. WILL ENDORSE TO AM RN FOR CONTINUITY OF CARE.
[2017-02-03 07:22] LABS: BASOPHILS % (AUTO) 0.5 % (0.0-2.0); EOSINOPHILS # (AUTO) 0.1 /CMM (0.0-0.7); EOSINOPHILS % (AUTO) 2.7 % (0.0-6.0); HEMATOCRIT 33 % (39-51); HEMOGLOBIN 10.9 g/dL (13.5-17.5); LYMPHOCYTES # (AUTO) 0.5 /CMM (0.8-4.8); LYMPHOCYTES % (AUTO) 8.7 % (20.0-44.0); MEAN CORPUSCULAR HEMOGLOBIN 32 PG (26.0-33.0); MEAN CORPUSCULAR HGB CONC 33 g/dl (31.0-36.0); MEAN CORPUSCULAR VOLUME 96 fL (80-96); MONOCYTES # (AUTO) 0.6 /CMM (0.1-1.30); MONOCYTES % (AUTO) 11.5 % (2.0-12.0); NEUTROPHILS # (AUTO) 4.1 /CMM (1.8-8.9); NEUTROPHILS % (AUTO) 76.6 % (43.0-81.0); PLATELET COUNT (AUTO) 226 /CMM (150-450); RDW COEFFICIENT OF VARIATION 13.6 (11.5-15.0); RED BLOOD CELL COUNT(AUTO) 3.42 MIL/uL (4.5-6.0); WHITE BLOOD COUNT (AUTO) 5.3 K/uL (4.3-11.0)
[2017-02-03 07:37] LABS: CALCIUM, SERUM 8.9 mg/dL (8.5-10.1); CREATININE 1.2 mg/dL (0.6-1.3); POTASSIUM 4.4 mmol/L (3.5-5.1)
[2017-02-03 08:00] VITALS: BP 169/80
[2017-02-03] MEDS: glipiZIDE 5 MG TABLET PO SCH (08:43)
[2017-02-03] MEDS: GABAPENTIN 300 MG CAPSULE PO SCH (08:43)
[2017-02-03] MEDS: ALLOPURINOL 100 MG TABLET PO SCH (08:44)
[2017-02-03] MEDS: LORATADINE 10 MG TABLET PO SCH (08:44)
[2017-02-03] MEDS: ASPIRIN 325 MG TABLET PO SCH (08:44)
[2017-02-03] MEDS: DILTIAZEM HCL CD 120 MG PO SCH (08:45)
[2017-02-03] MEDS: DOCUSATE SODIUM 100 MG CAPSULE PO SCH ×2 (08:46→17:31)
[2017-02-03] MEDS: NICOTINE PATCH (21MG) 21 MG PATCH.TD24 TD SCH (08:46)
[2017-02-03] MEDS: HYDROMORPHONE 1 MG/1 ML DISP.SYRIN SQ PRN ×2 (08:49→15:10)
[2017-02-03 12:00] VITALS: BP 163/85
[2017-02-03] MEDS: VANCOMYCIN 1 GM in IV D5W 250 ML IV SCH (12:25)
[2017-02-03] MEDS: oxyCODONE IR immediate release 5 MG CAPSULE PO PRN (12:26)
[2017-02-03 16:00] VITALS: BP 133/80
[2017-02-03 20:00] VITALS: BP 145/92
--- NOTE | 2017-02-03 20:00 | NUR ---
DIGITAL MEDIA REPRESENTATIVE INITIAL NOTE PT RECEIVED SITTING AT SIDE OF BED WITH SITTER AT BEDSIDE. A/O X2 WITH CONFUSION AND RESTLESSNESS AND VERBALIZING HE WANTS TO GO HOME. ON 3L OF O2 AND SATING WELL. IV SITE INTACT AND FLUSHING WELL. SPOKE WITH METAL FABRICATOR HELPER DR. DON REGARDING PT'S RESTLESSNESS AND VERBALIZATION OF WANTING TO GO HOME WITH NEW ORDER FOR ABG. READ BACK FOR CONFIRMATION. WILL CONTINUE TO MONITOR.
--- NOTE | 2017-02-03 20:30 | NUR ---
SKILLS TRAINER NOTE SPOKE WITH TO TALK TO PT AND CONVINCE HIM TO STAY THE NIGHT AND NOT TO REFUSE CARE. PT AGREED. PT UP IN CHAIR WITH SITTER AT BEDSIDE. WILL CONTINUE TO MONITOR
[2017-02-03 20:40] LABS: ABG BASE EXCESS 0.2 mmol/L; ABG OXYGEN SATURATION 92.4 % (92.0-98.5); ABG PO2 68.2 mmHg (75.0-100.0); AaDO2 40.8 mmHg; COHb 0.7 % (0.5-1.5); O2Hb 91.8 % (94.0-97.0); SITE, ABG Right Brachial; VENT MODE, BG RA
[2017-02-03] MEDS: PANTOPRAZOLE 40 MG TABLET.DR PO SCH (22:09)
[2017-02-03] MEDS: AMITRIPTYLINE HCL 25 MG TABLET PO SCH (22:09)
[2017-02-03] MEDS: *INSULIN REGULAR(HUMULIN R)HUM 100 UNIT/ML VIAL SQ PRN (22:15)
[2017-02-04] VITALS: BP 154/80
[2017-02-04] MEDS: ACETAMINOPHEN 325 MG TABLET PO PRN ×2 (01:10→20:28)
[2017-02-04] MEDS: IPRATROPIUM NEB FS 0.5 MG/2.5 ML AMPUL.NEB NEB SCH ×6 (03:28→23:30)
[2017-02-04] MEDS: ALBUTEROL HALF STRENGTH 1.25 MG/3 ML VIAL.NEB NEB SCH ×6 (03:29→23:30)
[2017-02-04 04:00] VITALS: BP 124/80
--- NOTE | 2017-02-04 07:00 | NUR ---
RN INITIAL NOTE RECEIVED PT FROM DAISY NELSON PM NURSE. PT A/O X2 WITH PERIODS OF CONFUSION. PT ON3L NC NO C/O SOB. L KNEE DRESSING INTACT. IV RAE PICC . SITTER @ BEDSIDE. WILL CONTINUE TO MONITOR CLOSELY. ALL SAFETY MEASURES IN PLACE.
--- NOTE | 2017-02-04 07:00 | NUR ---
PASTRYCOOK CLOSING NOTE PT REMAINED STABLE DURING SHIFT WITH PERIODS OF CONFUSION. NO ACUTE DISTRESS NOTED. NO C/O PAIN NOTED. SITTER AT BEDSIDE DURING SHIFT. ALL NEEDS ATTENDED TO PROMPTLY. WILL ENDORSE TO NEXT SHIFT FOR SINAN.
[2017-02-04] MEDS: BLOOD SUGAR DIAGNOSTIC 1 EACH STRIP VI SCH ×4 (07:02→21:58)
[2017-02-04 07:19] LABS: BASOPHILS # (AUTO) 0.1 /CMM (0.0-0.2); BASOPHILS % (AUTO) 1.4 % (0.0-2.0); EOSINOPHILS # (AUTO) 0.2 /CMM (0.0-0.7); EOSINOPHILS % (AUTO) 3.4 % (0.0-6.0); HEMATOCRIT 29 % (39-51); HEMOGLOBIN 9.8 g/dL (13.5-17.5); LYMPHOCYTES # (AUTO) 0.8 /CMM (0.8-4.8); LYMPHOCYTES % (AUTO) 13.4 % (20.0-44.0); MEAN CORPUSCULAR HEMOGLOBIN 32 PG (26.0-33.0); MEAN CORPUSCULAR HGB CONC 34 g/dl (31.0-36.0); MEAN CORPUSCULAR VOLUME 95 fL (80-96); MONOCYTES # (AUTO) 1.5 /CMM (0.1-1.30); MONOCYTES % (AUTO) 23.8 % (2.0-12.0); NEUTROPHILS # (AUTO) 3.6 /CMM (1.8-8.9); PLATELET COUNT (AUTO) 213 /CMM (150-450); RDW COEFFICIENT OF VARIATION 13.6 (11.5-15.0); RED BLOOD CELL COUNT(AUTO) 3.07 MIL/uL (4.5-6.0); WHITE BLOOD COUNT (AUTO) 6.2 K/uL (4.3-11.0)
[2017-02-04 07:29] LABS: CALCIUM, SERUM 9.1 mg/dL (8.5-10.1); CREATININE 1.4 mg/dL (0.6-1.3); MAGNESIUM 1.7 mg/dL (1.8-2.4); POTASSIUM 4.4 mmol/L (3.5-5.1)
[2017-02-04 08:00] VITALS: BP_SYST 122; BP_SYST 156; BP_DIAS 60; BP_DIAS 85
[2017-02-04 08:00] LABS: BASOPHILS % (MANUAL) 1 % (0.0-2.0); EOSINOPHILS % (MANUAL) 4 % (0-4); LYMPHOCYTES % (MANUAL) 13 % (16-48); MONOCYTES % (MANUAL) 21 % (0-11.0); NEUTROPHILS % (MANUAL) 61 (42-76)
--- NOTE | 2017-02-04 08:04 | NUR ---
RN NOTE PT REFUSED TELE MONITOR. TECH (KIN) AWARE.
[2017-02-04] MEDS: glipiZIDE 5 MG TABLET PO SCH (08:09)
[2017-02-04] MEDS: ASPIRIN 325 MG TABLET PO SCH (08:09)
[2017-02-04] MEDS: ALLOPURINOL 100 MG TABLET PO SCH (08:10)
[2017-02-04] MEDS: DILTIAZEM HCL CD 120 MG PO SCH (08:10)
[2017-02-04] MEDS: DOCUSATE SODIUM 100 MG CAPSULE PO SCH ×2 (08:10→16:32)
[2017-02-04] MEDS: GABAPENTIN 300 MG CAPSULE PO SCH (08:10)
[2017-02-04] MEDS: NICOTINE PATCH (21MG) 21 MG PATCH.TD24 TD SCH (08:11)
[2017-02-04] MEDS: LORATADINE 10 MG TABLET PO SCH (08:11)
[2017-02-04] MEDS ORDERED: SECONDARY IV SET 1 EA INFUS.SET MC ONE (10:43)
[2017-02-04] MEDS: Magnesium 1GM/D5W 100ML PREMIX 100 ML IV SCH ×2 (10:50→11:15)
[2017-02-04 12:00] VITALS: BP_SYST 152; BP_SYST 156; BP_DIAS 73
[2017-02-04] MEDS: VANCOMYCIN 1 GM in IV D5W 250 ML IV SCH (12:42)
--- NOTE | 2017-02-04 12:46 | NUR ---
RN NOTE CALLED PHARMACY REGARDING VANCO TROUGH 15 LAST DRAWN 02/01. PEPE STATED OK TO HANG WILL DRAW TOMORROW.
--- NOTE | 2017-02-04 14:56 | NUR ---
RN NOTE PHARMACY CALLED [facility]NABLE TO GIVE BAG #2 OF MAG DUE TO VANCO RUNNING. CALLED PHARMACY TO RE ENTER SECOND DOSE.
[2017-02-04] MEDS ORDERED: Magnesium 1GM/D5W 100ML PREMIX 100 ML IV SCH (15:00)
[2017-02-04 16:00] VITALS: BP_SYST 152; BP_SYST 156; BP_DIAS 79; BP_DIAS 85
[2017-02-04] MEDS: HYDROMORPHONE 1 MG/1 ML DISP.SYRIN SQ PRN (16:33)
[2017-02-04] MEDS: INSULIN REGULAR, HUMAN 100 UNIT/ML 3 ML VIAL SQ PRN (17:36)
--- NOTE | 2017-02-04 20:24 | NUR ---
RUBBER GOODS INSPECTOR TESTER NOTE PT IN BED A/A/O X 2 CONFUSED. NO SOB, NO DISTRESS OR DISCOMFORT NOTED. DENIES PAIN. PT HAS LOW GRADE FEVER 100.7 TYLENOL 650 MG PO GIVEN. ON TELE ARRHYTHMIA WITH PVC HR 98. RAE WITH PICC LINE INTACT AND PATENT. SITTER AT BED SIDE. SIDE RAILS UP X 2 AND CALL LIGHT WITHIN REACH. VSS. CONTINUE TO MONITOR HIM.
[2017-02-04 20:33] VITALS: BP 145/64
[2017-02-04] MEDS: AMITRIPTYLINE HCL 25 MG TABLET PO SCH (21:20)
[2017-02-04] MEDS: PANTOPRAZOLE 40 MG TABLET.DR PO SCH (21:20)
[2017-02-04] MEDS: *INSULIN REGULAR(HUMULIN R)HUM 100 UNIT/ML VIAL SQ PRN (21:59)
[2017-02-05] VITALS: BP 128/72
--- NOTE | 2017-02-05 | NUR ---
MEDICAL INSURANCE CLAIMS SPECIALIST NOTE INCONTINENCE CARE GIVEN. PT IN NO DISTRESS OR DISCOMFORT NOTED. SITTER AT BED SIDE. CONTINUE TO MONITOR HIM.
[2017-02-05] MEDS: IPRATROPIUM NEB FS 0.5 MG/2.5 ML AMPUL.NEB NEB SCH ×4 (03:30→15:36)
[2017-02-05] MEDS: ALBUTEROL HALF STRENGTH 1.25 MG/3 ML VIAL.NEB NEB SCH ×4 (03:30→15:36)
[2017-02-05 04:00] VITALS: BP 103/45
--- NOTE | 2017-02-05 04:56 | NUR ---
PHYSICIAN ASSISTANT PSYCHIATRY NOTE PT IN BED ASLEEP. RESP EVEN AND NON LABORED. ON TELE SR WITH BBB AND OCCASIONAL PVC HR 95. CONTINUE TO MONITOR HIM.
[2017-02-05] MEDS: BLOOD SUGAR DIAGNOSTIC 1 EACH STRIP VI SCH ×2 (05:40→11:43)
[2017-02-05] MEDS: INSULIN REGULAR, HUMAN 100 UNIT/ML 3 ML VIAL SQ PRN (05:42)
--- NOTE | 2017-02-05 06:27 | NUR ---
COLOR MAKER NOTE PT IN BED AWAKE. NO DISTRESS OR DISCOMFORT NOTED. DENIES PAIN. PICC LINE INTACT AND PATENT. SITTER AT BED SIDE. SIDE RAILS UP X 2 AND CALL LIGHT WITHIN REACH. WILL ENDORSE TO DAY SHIFT NURSE FOR CONTINUE TO CARE.
[2017-02-05 08:00] VITALS: BP 124/77
--- NOTE | 2017-02-05 08:00 | NUR ---
TELE1/RN AM SHIFT INITIAL NOTES RECEIVED PT AWAKE SITTING IN BED WITH SITTER AT BEDSIDE. PT A/O X 2 WITH NOTED CONFUSION, DENIES ANY DISCOMFORT, NO ACUTE CHANGE OF CONDITION NOTED. ON 3L O2 VIA N/C SATURATING @ 96%, LUNG SOUNDS DIMINISHED. ON TELE WITH SINUS RHYTHM WITH BBB, HR 98. PICC LINE FLUSHED, 1 PORT OCCLUDED, OTHER PATENT. PT IS COMFORTABLE AT THIS TIME. SCHEDULED AM MEDS TO BE GIVEN. CL WITHIN REACHED AND SAFETY MAINTAINED. ON GOING MONITORING.
[2017-02-05] MEDS: LORATADINE 10 MG TABLET PO SCH (08:56)
[2017-02-05] MEDS: GABAPENTIN 300 MG CAPSULE PO SCH (08:56)
[2017-02-05] MEDS: glipiZIDE 5 MG TABLET PO SCH (08:56)
[2017-02-05] MEDS: DOCUSATE SODIUM 100 MG CAPSULE PO SCH (08:56)
[2017-02-05] MEDS: ALLOPURINOL 100 MG TABLET PO SCH (08:56)
[2017-02-05] MEDS: ASPIRIN 325 MG TABLET PO SCH (08:57)
[2017-02-05] MEDS: NICOTINE PATCH (21MG) 21 MG PATCH.TD24 TD SCH (08:57)
[2017-02-05] MEDS: DILTIAZEM HCL CD 120 MG PO SCH (08:57)
[2017-02-05 09:26] LABS: BASOPHILS % (AUTO) 0.9 % (0.0-2.0); EOSINOPHILS # (AUTO) 0.1 /CMM (0.0-0.7); EOSINOPHILS % (AUTO) 2.5 % (0.0-6.0); HEMATOCRIT 31 % (39-51); HEMOGLOBIN 10.2 g/dL (13.5-17.5); LYMPHOCYTES # (AUTO) 0.4 /CMM (0.8-4.8); LYMPHOCYTES % (AUTO) 9.9 % (20.0-44.0); MEAN CORPUSCULAR HEMOGLOBIN 31 PG (26.0-33.0); MEAN CORPUSCULAR HGB CONC 33 g/dl (31.0-36.0); MEAN CORPUSCULAR VOLUME 95 fL (80-96); MONOCYTES # (AUTO) 0.8 /CMM (0.1-1.30); MONOCYTES % (AUTO) 17.9 % (2.0-12.0); NEUTROPHILS # (AUTO) 3.1 /CMM (1.8-8.9); NEUTROPHILS % (AUTO) 68.8 % (43.0-81.0); PLATELET COUNT (AUTO) 223 /CMM (150-450); RDW COEFFICIENT OF VARIATION 13.8 (11.5-15.0); RED BLOOD CELL COUNT(AUTO) 3.28 MIL/uL (4.5-6.0); WHITE BLOOD COUNT (AUTO) 4.4 K/uL (4.3-11.0)
[2017-02-05 09:33] LABS: CALCIUM, SERUM 8.6 mg/dL (8.5-10.1); CREATININE 1.4 mg/dL (0.6-1.3); POTASSIUM 4.5 mmol/L (3.5-5.1)
--- NOTE | 2017-02-05 10:20 | NUR ---
TELE1/RN PHYSICAL THERAPY PT BEING SEEN BY PHYSICAL THERAPIST. PT ABLE TO WALK FOR SHORT DISTANCE WITH ASSISTANCE.
[2017-02-05 10:39] LABS: BAND % (MANUAL) 3 % (0.0-5.0); EOSINOPHILS % (MANUAL) 1 % (0-4); LYMPHOCYTES % (MANUAL) 21 % (16-48); MONOCYTES % (MANUAL) 18 % (0-11.0); NEUTROPHILS % (MANUAL) 57 (42-76)
--- NOTE | 2017-02-05 10:47 | NUR ---
TELE1/RN NOTIFICATION - [facility] CALLED DR. LIU'S OFFICE AND RELAYED NOTED DRAINAGE ON LEFT KNEE SURGICAL SITE, SAID THAT MS MIGHT WANT TO SEE PT BEFORE POSSIBLE DISCHARGE TODAY.
[2017-02-05] MEDS: VANCOMYCIN 1 GM in IV D5W 250 ML IV SCH (11:35)
[2017-02-05] MEDS: oxyCODONE IR immediate release 5 MG CAPSULE PO PRN (11:41)
[2017-02-05 12:00] VITALS: BP 135/75
[2017-02-05] MEDS ORDERED: NA PHOS,M-B/NA PHOS,DI-BA 1 EA ENEMA RC PRN (14:30)
[2017-02-05] MEDS ORDERED: VANC1PLA9 IV (15:33)
[2017-02-05] MEDS ORDERED: ALBU1.25 NEB (15:33)
[2017-02-05] MEDS ORDERED: NA P133E RC (15:33)
[2017-02-05] MEDS ORDERED: DOCU-25 PO (15:33)
[2017-02-05] MEDS ORDERED: Oxycodone Hcl PO (15:33)
[2017-02-05] MEDS ORDERED: DILT120C87 PO (15:33)
[2017-02-05] MEDS ORDERED: Ipratropium Bromide NEB (15:33)
[2017-02-05] MEDS ORDERED: Bisacodyl RC (15:33)
--- NOTE | 2017-02-05 15:45 | NUR ---
TELE1/RN REPORT - [facility] REPORT GIVEN TO NURSE OSMAR DUNCAN OF [facility] @ [phone]. ESTIMATED PICK-UP TIME @ 1600.
--- NOTE | 2017-02-05 15:52 | NUR ---
TELE1/RN FOLLOW-UP CALL - [facility] CALLED 2 MORE TIMES TO FOLLOW-UP ON WOUND CARE INSTRUCTION FOR PT. AWAITING FOR RETURN CALL.
[2017-02-05 16:00] VITALS: BP 158/67
--- NOTE | 2017-02-05 16:49 | NUR ---
TELE1/TELLER HEAD - REHAB DISCHARGE INSTRUCTIONS GIVEN TO ACUTE REHAB NURSE. DISCHARGE DOCUMENTS GIVEN TO TRANSPORT PERSONNEL. PERSONNEL BELONGINGS RETURNED TO PT, INVENTORY LOG SIGNED OFF. ID BANDS REMOVED. PICC LINE INTACT. PT LEFT TELE1 UNIT IN STABLE CONDITION VIA GURNEY ACCOMPANIED BY TRANSPORT PERSONNEL.
== END 2017-02-05 16:53 | DRG 466 ==
LOC: ER 11:53 → MEDSG2 12:48 → ICU 01-30 09:36 → TELE 01-31 18:00 → TELE-TD 02-02 05:21 → TELE1 02-02 08:45
PROVIDERS: ADMIT Family Medicine; ATTEND Family Medicine
PROC: 0SRW0JZ Replacement of Left Knee Joint, Tibial Surface with Synthetic Substitute, Open Approach (ICD-10-PCS; 2017-01-30)
PROC: 0SPD09Z Removal of Liner from Left Knee Joint, Open Approach (ICD-10-PCS; 2017-01-30)
PROC: 0SUW09Z Supplement Left Knee Joint, Tibial Surface with Liner, Open Approach (ICD-10-PCS; 2017-01-30)
PROC: 02HV33Z Insertion of Infusion Device into Superior Vena Cava, Percutaneous Approach (ICD-10-PCS; 2017-01-30)
PROC: B548ZZA Ultrasonography of Superior Vena Cava, Guidance (ICD-10-PCS; 2017-01-30)
PROC: 0SPW0JZ Removal of Synthetic Substitute from Left Knee Joint, Tibial Surface, Open Approach (ICD-10-PCS; principal; 2017-01-30 06:30)
DX: T84.54XA Infection and inflammatory reaction due to internal left knee prosthesis, initial encounter (principal); J96.01 Acute respiratory failure with hypoxia; J96.02 Acute respiratory failure with hypercapnia; I50.21 Acute systolic (congestive) heart failure; I21.4 Non-ST elevation (NSTEMI) myocardial infarction; N17.0 Acute kidney failure with tubular necrosis; L03.116 Cellulitis of left lower limb; J44.1 Chronic obstructive pulmonary disease with (acute) exacerbation; D62 Acute posthemorrhagic anemia; E87.2 Acidosis; F17.213 Nicotine dependence, cigarettes, with withdrawal; I47.1 Supraventricular tachycardia; J98.11 Atelectasis; M00.9 Pyogenic arthritis, unspecified; E11.9 Type 2 diabetes mellitus without complications; I25.10 Atherosclerotic heart disease of native coronary artery without angina pectoris; M10.9 Gout, unspecified; M19.90 Unspecified osteoarthritis, unspecified site; I11.0 Hypertensive heart disease with heart failure; Z95.5 Presence of coronary angioplasty implant and graft; K59.09 Other constipation; E78.00 Pure hypercholesterolemia, unspecified; G14 Postpolio syndrome; G47.00 Insomnia, unspecified; G89.4 Chronic pain syndrome; I44.0 Atrioventricular block, first degree; T50.2X5A Adverse effect of carbonic-anhydrase inhibitors, benzothiadiazides and other diuretics, initial encounter; N13.9 Obstructive and reflux uropathy, unspecified; B95.7 Other staphylococcus as the cause of diseases classified elsewhere
CPT/HCPCS: 36415; 36600; 71010-TC; 74000-TC; 76770-TC; 80048-TC; 80053-TC; 80076-TC; 80202-TC; 81000-TC; 82570-TC; 82803-TC; 82962-TC; 83735-TC; 84100-TC; 84300-TC; 84484-TC; 85025-TC; 85730-TC; 86850-TC; 87070-TC; 87075-TC; 87081-TC; 87086-TC; 87186-TC; 88300-TC; 93307-TC; 93970-TC; 93971-TC; 94762-TC; 94799-TC; 97001-TC; 97110-TC; 97116-TC; 97530-TC; 97760-TC; A4217; A4606; A6253; A6402; C1751; J0696; J1170; J1650; J1815; J1885; J1940; J2250; J2370; J2405; J2704; J2710; J3010; J3370; J3475; J3490; J7050; J7060; Z7610